=== PATIENT | female | born 1930 | race Caucasian/White ===

== ENCOUNTER 2018-10-29 12:25 | Inpatient (IN) | payer MEDICARE, BC ==
[~2018-10-29] VITALS: Ht 165.1 cm; Wt 51.5 kg
[~2018-10-29 12:25] MED LIST: AMLO1CAP6 PO; ASCO500C15 PO; ATOR20TA66 PO; CHOL400T PO; CLOP75TA35 PO; FURO-150 PO; HYDR-4383 PO; LACRIL; NITR0.4T51 SL; SOTA80TA46
[2018-10-29 14:50] LABS: BASOPHILS # (AUTO) 0.1 X10'3 (0-0.2); BASOPHILS % (AUTO) 1.5 % (0-1); EOSINOPHILS # (AUTO) 0.3 X10'3 (0-0.9); EOSINOPHILS % (AUTO) 4.4 % (0-6); HEMATOCRIT 39.6 % (35.0-45.0); HEMOGLOBIN 13.7 g/dl (12.0-16.0); LYMPHOCYTES # (AUTO) 1.5 X10'3 (1.1-4.8); LYMPHOCYTES % (AUTO) 22.6 % (21-51); MEAN CORPUSCULAR HGB CONC 34.6 g/dL (33.0-36.5); MEAN CORPUSCULAR VOLUME 98.1 FL (78-98); MEAN PLATELET VOLUME 8.4 FL (7.4-10.4); MONOCYTES # (AUTO) 0.6 X10'3 (0-0.9); MONOCYTES % (AUTO) 9.3 % (2-12); NEUTROPHILS # (AUTO) 4.1 X10'3 (1.8-7.7); NEUTROPHILS % (AUTO) 62.2 % (42-75); PLATELET COUNT 217 X10'3 (140-440); RED BLOOD COUNT 4.04 X10'6 (4.20-5.60); WHITE BLOOD COUNT 6.7 X10'3 (4.5-11.0)
[2018-10-29 15:04] LABS: INR 1.1 INR; PARTIAL THROMBOPLASTIN TIME 34 SECONDS (22-32); PROTHROMBIN TIME 10.8 SECONDS (9.0-12.0)
[2018-10-29 15:07] LABS: ALANINE AMINOTRANSFERASE 28 U/L (12-78); ALBUMIN/GLOBULIN RATIO 1.1 (1.1-1.5); ALKALINE PHOSPHATASE 79 IU/L (46-116); ANION GAP 7 (8-16); ASPARTATE AMINO TRANSFERASE 19 U/L (10-37); BILIRUBIN,TOTAL 0.8 MG/DL (0.1-1.0); BLOOD UREA NITROGEN 18 MG/DL (7-18); BUN/CREATININE RATIO 21.7 (6.6-38.0); CALCIUM 8.9 MG/DL (8.5-10.1); CHLORIDE 101 MMOL/L (99-107); CREATININE 0.83 MG/DL (0.40-0.90); GLUCOSE 98 MG/DL (70-104); POTASSIUM 3.7 MMOL/L (3.5-5.1); SODIUM 139 MMOL/L (135-145); TOTAL CARBON DIOXIDE 30.8 MMOL/L (24-32); TOTAL PROTEIN 7.6 G/DL (6.4-8.2); eGFR 65 ML/MIN
[2018-10-29] MEDS ORDERED: aspirin 81mg tab.chew PO ONE (15:25)
[2018-10-29] MEDS ORDERED: LORazepam 0.5 MG tablet PO PRN (15:50)
[2018-10-29] MEDS ORDERED: furosemide 10 MG/1 ML 10ml inj IV ONE (16:25)
[2018-10-29 16:35] LABS: D-DIMER 0.47 MG/L FEU (0-0.50)
[2018-10-29] MEDS ORDERED: VITA400C65 PO (16:53)
[2018-10-29] MEDS ORDERED: OMEG1CAP13 PO (16:53)
[2018-10-29] MEDS ORDERED: VITC500T PO (16:53)
[2018-10-29] MEDS ORDERED: FURO-150 PO (16:53)
[2018-10-29] MEDS ORDERED: PYRI50TA10 PO (16:53)
[2018-10-29] MEDS ORDERED: SOTA80TA PO (16:53)
[2018-10-29] MEDS ORDERED: ASPI-611 PO (16:53)
[2018-10-29] MEDS ORDERED: MAGN400C PO (16:53)
[2018-10-29] MEDS ORDERED: APIX2.5T PO (16:53)
[2018-10-29] MEDS ORDERED: AMLO1CAP9 PO (16:53)
[2018-10-29] MEDS ORDERED: CYA500T PO (16:53)
[2018-10-29] MEDS ORDERED: CHOL400T14 PO (16:53)
[2018-10-29] MEDS ORDERED: mag hydrox/Alum hydrox/simeth 30ml oral suspension PO PRN (19:45)
[2018-10-29] MEDS ORDERED: acetaminophen 325mg tablet PO PRN (19:45)
[2018-10-29] MEDS ORDERED: magnesium hydroxide 30ml (MOM) UD suspension PO PRN (19:45)
[2018-10-29] MEDS ORDERED: ondansetron/PF 4mg/2ml inj IV PRN (19:45)
[2018-10-29] MEDS: magnesium oxide 400mg tablet PO SCH (20:42)
--- NOTE | 2018-10-29 20:45 | NUR ---
tyra albarado room assignemnt 346b. pt is a&ox4 and pleasant and cooperative and with stable vs. av paced on monitor. 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 saez. denies any pain and reports no sob or cp as long as she is not movings . assisted to bsc to void.
[2018-10-29 21:00] VITALS: BP 144/75
--- NOTE | 2018-10-29 21:00 | NUR ---
Received report from ER nurse Lisa HURTADO. Will assume patient care
--- NOTE | 2018-10-29 21:20 | NUR ---
Patient settles in room. [place] patient to room and surroundings. States understanding of using call light for assistance. Sats 95 RA. No respiratory distress noted. Lungs sounds clear. Will continue with care.
[2018-10-29] MEDS: sotalol 80mg tablet PO SCH (21:38)
[2018-10-29] MEDS: apixaban 2.5mg tablet PO SCH (21:40)
[2018-10-30] VITALS: BP 119/54
[2018-10-30 02:38] LABS: BASOPHILS % (AUTO) 0.5 % (0-1); EOSINOPHILS # (AUTO) 0.3 X10'3 (0-0.9); EOSINOPHILS % (AUTO) 5.3 % (0-6); HEMATOCRIT 36.8 % (35.0-45.0); HEMOGLOBIN 12.4 g/dl (12.0-16.0); LYMPHOCYTES # (AUTO) 1.9 X10'3 (1.1-4.8); LYMPHOCYTES % (AUTO) 32.6 % (21-51); MEAN CORPUSCULAR HEMOGLOBIN 33.2 PG (27.0-31.0); MEAN CORPUSCULAR HGB CONC 33.8 g/dL (33.0-36.5); MEAN CORPUSCULAR VOLUME 98.2 FL (78-98); MEAN PLATELET VOLUME 8.4 FL (7.4-10.4); MONOCYTES # (AUTO) 0.7 X10'3 (0-0.9); MONOCYTES % (AUTO) 12.2 % (2-12); NEUTROPHILS # (AUTO) 2.8 X10'3 (1.8-7.7); NEUTROPHILS % (AUTO) 49.4 % (42-75); PLATELET COUNT 193 X10'3 (140-440); RED BLOOD COUNT 3.74 X10'6 (4.20-5.60); RED CELL DISTRIBUTION WIDTH 13.9 % (11.5-14.5); WHITE BLOOD COUNT 5.7 X10'3 (4.5-11.0)
[2018-10-30 02:49] LABS: ALANINE AMINOTRANSFERASE 24 U/L (12-78); ALBUMIN 3.4 G/DL (3.4-5.0); ALBUMIN/GLOBULIN RATIO 1.2 (1.1-1.5); ALKALINE PHOSPHATASE 63 IU/L (46-116); ANION GAP 8 (8-16); ASPARTATE AMINO TRANSFERASE 17 U/L (10-37); BILIRUBIN,TOTAL 0.6 MG/DL (0.1-1.0); BLOOD UREA NITROGEN 22 MG/DL (7-18); BUN/CREATININE RATIO 25.6 (6.6-38.0); CALCIUM 8.6 MG/DL (8.5-10.1); CHLORIDE 101 MMOL/L (99-107); CREATININE 0.86 MG/DL (0.40-0.90); GLUCOSE 90 MG/DL (70-104); POTASSIUM 3.3 MMOL/L (3.5-5.1); SODIUM 139 MMOL/L (135-145); TOTAL CARBON DIOXIDE 29.9 MMOL/L (24-32); TOTAL PROTEIN 6.3 G/DL (6.4-8.2); eGFR 62 ML/MIN
[2018-10-30] MEDS ORDERED: potassium Cl 40MEQ/NS 500ml 500 ML IV PRN ×2 (05:10)
[2018-10-30] MEDS ORDERED: potassium Cl 20 mEq SR tablet PO PRN (05:10)
[2018-10-30] MEDS: potassium Cl 20 mEq SR tablet PO PRN ×3 (05:14→14:20)
--- NOTE | 2018-10-30 06:30 | NUR ---
Patient in room [facility]. I have received report from GENESIS Stearns and had the opportunity to ask questions and assume patient care. Patient resting comfortably at this time. Call light and items of frequent use in reach of patient.
[2018-10-30 08:00] VITALS: BP 123/69
[2018-10-30] MEDS ORDERED: non-formulary drug (Amlodipine Besylate/Benazepril (Amlodipine-Benazepril 5-20 mg) 1 CAP) PO SCH (08:00)
[2018-10-30] MEDS ORDERED: non-formulary drug (Docosahexanoic Acid/Epa (Fish Oil 1,000 Mg Softgel) 1 EACH) PO SCH (08:00)
[2018-10-30] MEDS: cholecalciferol (vitamin D) 400 unit tablet PO SCH (08:40)
[2018-10-30] MEDS: sotalol 80mg tablet PO SCH ×2 (08:40→19:39)
[2018-10-30] MEDS: ascorbic acid 500mg tablet PO SCH (08:40)
[2018-10-30] MEDS: magnesium oxide 400mg tablet PO SCH ×2 (08:40→19:39)
[2018-10-30] MEDS: apixaban 2.5mg tablet PO SCH ×2 (08:40→19:39)
[2018-10-30] MEDS: vitamin E 400 unit capsule PO SCH (08:40)
[2018-10-30] MEDS: aspirin 81mg tab.chew PO SCH (08:40)
[2018-10-30] MEDS: cyanocobalamin 500mcg tablet PO SCH (08:40)
[2018-10-30] MEDS: lisinopril 20mg tablet PO SCH (08:41)
[2018-10-30] MEDS: amLODIPine 5mg tablet PO SCH (08:42)
[2018-10-30] MEDS: pyridoxine 50mg tablet PO SCH (09:20)
[2018-10-30] MEDS: furosemide 40mg/4ml inj IV SCH (09:20)
[2018-10-30 11:00] VITALS: BP 127/68
--- NOTE | 2018-10-30 18:32 | NUR ---
Received report from Irasema HURTADO pt is awake and alert on RA, in no apparent distress, just finished up with dinner, call light and items of freq use within reach
--- NOTE | 2018-10-30 18:46 | NUR ---
Problems reprioritized. Patient report given, questions answered & plan of care reviewed with GENESIS Viveros. Patient finished dinner and is resting comfortably at this time. Call light and items of use in reach of patient.
[2018-10-30 19:00] VITALS: BP 116/51
[2018-10-30] MEDS: polyethylene glycol 3350 17gm powd pack PO SCH (20:36)
[2018-10-31 00:11] VITALS: BP 110/57
--- NOTE | 2018-10-31 06:03 | NUR ---
Problems reprioritized. Patient report given, questions answered & plan of care reviewed with Irasema HURTADO.
--- NOTE | 2018-10-31 06:45 | NUR ---
Patient in room [facility]. I have received report from GENESIS Armendariz and had the opportunity to ask questions and assume patient care. patient resting comfortably at this time. Call light and items of frequent use in reach of patient.
[2018-10-31 07:06] LABS: BASOPHILS % (AUTO) 0.5 % (0-1); EOSINOPHILS # (AUTO) 0.4 X10'3 (0-0.9); EOSINOPHILS % (AUTO) 5.8 % (0-6); HEMATOCRIT 38.1 % (35.0-45.0); HEMOGLOBIN 12.9 g/dl (12.0-16.0); LYMPHOCYTES # (AUTO) 1.7 X10'3 (1.1-4.8); LYMPHOCYTES % (AUTO) 21.6 % (21-51); MEAN CORPUSCULAR HEMOGLOBIN 33.1 PG (27.0-31.0); MEAN CORPUSCULAR HGB CONC 33.8 g/dL (33.0-36.5); MEAN CORPUSCULAR VOLUME 97.9 FL (78-98); MEAN PLATELET VOLUME 8.5 FL (7.4-10.4); MONOCYTES # (AUTO) 0.7 X10'3 (0-0.9); MONOCYTES % (AUTO) 9.7 % (2-12); NEUTROPHILS # (AUTO) 4.8 X10'3 (1.8-7.7); NEUTROPHILS % (AUTO) 62.4 % (42-75); PLATELET COUNT 192 X10'3 (140-440); RED BLOOD COUNT 3.89 X10'6 (4.20-5.60); RED CELL DISTRIBUTION WIDTH 13.5 % (11.5-14.5); WHITE BLOOD COUNT 7.7 X10'3 (4.5-11.0)
[2018-10-31 07:13] LABS: ALANINE AMINOTRANSFERASE 20 U/L (12-78); ALBUMIN 3.3 G/DL (3.4-5.0); ALBUMIN/GLOBULIN RATIO 1.1 (1.1-1.5); ALKALINE PHOSPHATASE 61 IU/L (46-116); ANION GAP 10 (8-16); ASPARTATE AMINO TRANSFERASE 15 U/L (10-37); BILIRUBIN,TOTAL 0.6 MG/DL (0.1-1.0); BLOOD UREA NITROGEN 29 MG/DL (7-18); BUN/CREATININE RATIO 32.6 (6.6-38.0); CALCIUM 8.7 MG/DL (8.5-10.1); CHLORIDE 102 MMOL/L (99-107); CREATININE 0.89 MG/DL (0.40-0.90); GLUCOSE 94 MG/DL (70-104); POTASSIUM 4.1 MMOL/L (3.5-5.1); SODIUM 139 MMOL/L (135-145); TOTAL CARBON DIOXIDE 27.4 MMOL/L (24-32); TOTAL PROTEIN 6.4 G/DL (6.4-8.2); eGFR 60 ML/MIN
[2018-10-31 07:47] VITALS: BP 135/71
[2018-10-31] MEDS: furosemide 40mg/4ml inj IV SCH (08:27)
[2018-10-31] MEDS: sotalol 80mg tablet PO SCH ×2 (08:27→20:28)
[2018-10-31] MEDS: apixaban 2.5mg tablet PO SCH ×2 (08:28→20:28)
[2018-10-31] MEDS: magnesium oxide 400mg tablet PO SCH ×2 (08:29→20:28)
[2018-10-31] MEDS: amLODIPine 5mg tablet PO SCH (08:29)
[2018-10-31] MEDS: lisinopril 20mg tablet PO SCH (08:30)
[2018-10-31] MEDS: vitamin E 400 unit capsule PO SCH (08:30)
[2018-10-31] MEDS: pyridoxine 50mg tablet PO SCH (08:30)
[2018-10-31] MEDS: cholecalciferol (vitamin D) 400 unit tablet PO SCH (08:30)
[2018-10-31] MEDS: ascorbic acid 500mg tablet PO SCH (08:30)
[2018-10-31] MEDS: cyanocobalamin 500mcg tablet PO SCH (08:30)
[2018-10-31] MEDS: aspirin 81mg tab.chew PO SCH (08:31)
[2018-10-31 11:54] VITALS: BP 137/72
--- NOTE | 2018-10-31 18:15 | NUR ---
Problems reprioritized. Patient report given, questions answered & plan of care reviewed with GENESIS Armendariz. Patient alert, oriented and in no apparent distress at this time. Patient eating dinner at this time. Call light and items of frequent use in reach of patient.
--- NOTE | 2018-10-31 18:19 | NUR ---
Received report from Irasema HURTADO pt is awake and alert family at bedside, on RA, eating dinner, in no apparent distress, calll ight and items of freq use within reach.
[2018-10-31 19:00] VITALS: BP 125/57
[2018-10-31] MEDS: polyethylene glycol 3350 17gm powd pack PO SCH (20:27)
[2018-11-01] VITALS: BP 125/60
--- NOTE | 2018-11-01 05:56 | NUR ---
Gave report to Irasema HURTADO pt is resting on RA, in no apparent distress, call light and items of freq use within reach.
[2018-11-01 06:12] LABS: BASOPHILS % (AUTO) 0.6 % (0-1); EOSINOPHILS # (AUTO) 0.4 X10'3 (0-0.9); HEMOGLOBIN 12.8 g/dl (12.0-16.0); LYMPHOCYTES # (AUTO) 1.9 X10'3 (1.1-4.8); LYMPHOCYTES % (AUTO) 27.4 % (21-51); MEAN CORPUSCULAR HEMOGLOBIN 33.1 PG (27.0-31.0); MEAN CORPUSCULAR HGB CONC 33.6 g/dL (33.0-36.5); MEAN CORPUSCULAR VOLUME 98.4 FL (78-98); MEAN PLATELET VOLUME 8.4 FL (7.4-10.4); MONOCYTES # (AUTO) 0.7 X10'3 (0-0.9); MONOCYTES % (AUTO) 10.4 % (2-12); NEUTROPHILS # (AUTO) 3.8 X10'3 (1.8-7.7); NEUTROPHILS % (AUTO) 55.6 % (42-75); PLATELET COUNT 202 X10'3 (140-440); RED BLOOD COUNT 3.87 X10'6 (4.20-5.60); RED CELL DISTRIBUTION WIDTH 13.4 % (11.5-14.5); WHITE BLOOD COUNT 6.9 X10'3 (4.5-11.0)
[2018-11-01 06:31] LABS: ALANINE AMINOTRANSFERASE 16 U/L (12-78); ALBUMIN 3.3 G/DL (3.4-5.0); ALBUMIN/GLOBULIN RATIO 1.1 (1.1-1.5); ALKALINE PHOSPHATASE 61 IU/L (46-116); ANION GAP 10 (8-16); ASPARTATE AMINO TRANSFERASE 13 U/L (10-37); BILIRUBIN,TOTAL 0.5 MG/DL (0.1-1.0); BLOOD UREA NITROGEN 26 MG/DL (7-18); BUN/CREATININE RATIO 33.8 (6.6-38.0); CALCIUM 8.8 MG/DL (8.5-10.1); CHLORIDE 101 MMOL/L (99-107); CREATININE 0.77 MG/DL (0.40-0.90); GLUCOSE 94 MG/DL (70-104); POTASSIUM 3.9 MMOL/L (3.5-5.1); SODIUM 138 MMOL/L (135-145); TOTAL CARBON DIOXIDE 27.1 MMOL/L (24-32); TOTAL PROTEIN 6.4 G/DL (6.4-8.2); eGFR 71 ML/MIN
[2018-11-01 08:00] VITALS: BP 141/84
[2018-11-01] MEDS: amLODIPine 5mg tablet PO SCH (08:20)
[2018-11-01] MEDS: sotalol 80mg tablet PO SCH ×2 (08:20→19:20)
[2018-11-01] MEDS: pyridoxine 50mg tablet PO SCH (08:21)
[2018-11-01] MEDS: magnesium oxide 400mg tablet PO SCH ×2 (08:21→19:20)
[2018-11-01] MEDS: lisinopril 20mg tablet PO SCH (08:21)
[2018-11-01] MEDS: vitamin E 400 unit capsule PO SCH (08:21)
[2018-11-01] MEDS: ascorbic acid 500mg tablet PO SCH (08:21)
[2018-11-01] MEDS: cyanocobalamin 500mcg tablet PO SCH (08:21)
[2018-11-01] MEDS: furosemide 40mg/4ml inj IV SCH (08:21)
[2018-11-01] MEDS: cholecalciferol (vitamin D) 400 unit tablet PO SCH (08:21)
[2018-11-01] MEDS: aspirin 81mg tab.chew PO SCH (08:21)
[2018-11-01] MEDS: apixaban 2.5mg tablet PO SCH ×2 (08:21→19:20)
[2018-11-01 12:00] VITALS: BP 114/59
--- NOTE | 2018-11-01 14:48 | NUR ---
Plan of care rediscussed with patient and family members. PT is to work with patient and evaluate for baseline. If patient tolerates well she will be discharging home. If PT states that she should go to a rehab facility then referrals will be asked for from case management. Per Dr. Carrizales.
--- NOTE | 2018-11-01 16:00 | NUR ---
O2 Sat at rest on room air:97% If below 89%: Recovery O2 Sat at rest on ___LPM:___%:___% via (mask/nasal cannula, etc..) No further documentation is necessary. If O2 Sat did not drop below 89% on room air,ambulate patient on room air. O2 Sat while ambulating on room air:97-98% Recovery O2 Sat while ambulating on ___LPM:___% No further documentation is necessary. If patient does not drop below 89% while ambulating, he/she does not qualify for home O2.
--- NOTE | 2018-11-01 17:30 | NUR ---
Patient did not work with PT due to PT being busy. Discussed with Charge and charge agreed that I could evaluate patient's oxygen saturation while ambulating to see if she desaturated. Patient's baseline O2 sat was 97%. During ambulation the O2 sat did not drop. Although the numbers were not showing evidence of oxygenation problems, the patient became very short of breath during ambulation and expressed a dizziness sensation in her head and that her legs felt tingly. Patient was able to walk 300 feet but had to take several breaks. Patient walked back to her room and was struggling to control her breathing. Lung sounds were clear and saturation remained 97%. Dr. Carrizales was notified of the distress and was notified that this is not the patients baseline. Patient is usually able to ambulate independently at home and has not experienced this type of SOB prior to the last week. Patient and family did not feel comfortably with patient leaving today. Dr. Carrizales agreed to allow patient to stay and be evaluated again tomorrow.
[2018-11-01 18:00] VITALS: BP 141/78
--- NOTE | 2018-11-01 18:40 | NUR ---
Problems reprioritized. Patient report given, questions answered & plan of care reviewed with GENESIS Liang. Patient resting comfortably at this time and in no apparent distress on room air. Call light and items of frequent use in reach of patient.
--- NOTE | 2018-11-01 18:54 | NUR ---
Patient in room [facility]. I have received report from Irasema HURTADO and had the opportunity to ask questions and assume patient care.
[2018-11-01] MEDS: polyethylene glycol 3350 17gm powd pack PO SCH (21:41)
[2018-11-02] VITALS: BP 134/71
[2018-11-02 05:15] LABS: BASOPHILS # (AUTO) 0.1 X10'3 (0-0.2); BASOPHILS % (AUTO) 0.8 % (0-1); EOSINOPHILS # (AUTO) 0.5 X10'3 (0-0.9); EOSINOPHILS % (AUTO) 6.3 % (0-6); HEMATOCRIT 39.1 % (35.0-45.0); HEMOGLOBIN 13.4 g/dl (12.0-16.0); LYMPHOCYTES # (AUTO) 2.1 X10'3 (1.1-4.8); LYMPHOCYTES % (AUTO) 29.2 % (21-51); MEAN CORPUSCULAR HEMOGLOBIN 33.4 PG (27.0-31.0); MEAN CORPUSCULAR HGB CONC 34.4 g/dL (33.0-36.5); MEAN CORPUSCULAR VOLUME 97.2 FL (78-98); MEAN PLATELET VOLUME 8.3 FL (7.4-10.4); MONOCYTES # (AUTO) 0.8 X10'3 (0-0.9); MONOCYTES % (AUTO) 10.9 % (2-12); NEUTROPHILS # (AUTO) 3.8 X10'3 (1.8-7.7); NEUTROPHILS % (AUTO) 52.8 % (42-75); PLATELET COUNT 207 X10'3 (140-440); RED BLOOD COUNT 4.02 X10'6 (4.20-5.60); RED CELL DISTRIBUTION WIDTH 13.4 % (11.5-14.5); WHITE BLOOD COUNT 7.2 X10'3 (4.5-11.0)
[2018-11-02 05:31] LABS: ALANINE AMINOTRANSFERASE 17 U/L (12-78); ALBUMIN 3.4 G/DL (3.4-5.0); ALBUMIN/GLOBULIN RATIO 1.1 (1.1-1.5); ALKALINE PHOSPHATASE 66 IU/L (46-116); ANION GAP 7 (8-16); ASPARTATE AMINO TRANSFERASE 13 U/L (10-37); BILIRUBIN,TOTAL 0.5 MG/DL (0.1-1.0); BLOOD UREA NITROGEN 25 MG/DL (7-18); BUN/CREATININE RATIO 30.5 (6.6-38.0); CALCIUM 9.1 MG/DL (8.5-10.1); CHLORIDE 101 MMOL/L (99-107); CREATININE 0.82 MG/DL (0.40-0.90); GLUCOSE 92 MG/DL (70-104); POTASSIUM 4.4 MMOL/L (3.5-5.1); SODIUM 139 MMOL/L (135-145); TOTAL CARBON DIOXIDE 30.9 MMOL/L (24-32); TOTAL PROTEIN 6.6 G/DL (6.4-8.2); eGFR 66 ML/MIN
--- NOTE | 2018-11-02 06:14 | NUR ---
Problems reprioritized. Patient report given, questions answered & plan of care reviewed with Belle HURTADO.
--- NOTE | 2018-11-02 06:14 | NUR ---
Patient in room [facility]. I have received report from and had the opportunity to ask questions and assume patient care.
--- NOTE | 2018-11-02 06:41 | NUR ---
received report from Azul HURTADO
[2018-11-02 07:03] VITALS: BP 148/85
[2018-11-02 07:53] VITALS: BP 148/85
[2018-11-02] MEDS: furosemide 40mg/4ml inj IV SCH (08:08)
[2018-11-02] MEDS: aspirin 81mg tab.chew PO SCH (08:09)
[2018-11-02] MEDS: lisinopril 20mg tablet PO SCH (08:09)
[2018-11-02] MEDS: magnesium oxide 400mg tablet PO SCH (08:09)
[2018-11-02] MEDS: cyanocobalamin 500mcg tablet PO SCH (08:10)
[2018-11-02] MEDS: sotalol 80mg tablet PO SCH (08:10)
[2018-11-02] MEDS: ascorbic acid 500mg tablet PO SCH (08:10)
[2018-11-02] MEDS: amLODIPine 5mg tablet PO SCH (08:10)
[2018-11-02] MEDS: cholecalciferol (vitamin D) 400 unit tablet PO SCH (08:44)
[2018-11-02] MEDS: pyridoxine 50mg tablet PO SCH (08:44)
[2018-11-02] MEDS: vitamin E 400 unit capsule PO SCH (08:44)
[2018-11-02] MEDS: apixaban 2.5mg tablet PO SCH (08:44)
[2018-11-02 11:00] VITALS: BP 136/75
[2018-11-02 11:13] VITALS: BP 136/75
== END 2018-11-02 15:28 | disposition home health service (06) | DRG 292 ==
LOC: ER 12:25 → ED HOLD 19:43 → SUR 3N 21:20
PROVIDERS: ADMIT Internal Medicine; ATTEND Internal Medicine
DX: I11.0 Hypertensive heart disease with heart failure (principal); Z68.1 Body mass index [BMI] 19.9 or less, adult; E87.6 Hypokalemia; I27.20 Pulmonary hypertension, unspecified; I25.10 Atherosclerotic heart disease of native coronary artery without angina pectoris; E03.9 Hypothyroidism, unspecified; E78.00 Pure hypercholesterolemia, unspecified; I50.43 Acute on chronic combined systolic (congestive) and diastolic (congestive) heart failure; M19.90 Unspecified osteoarthritis, unspecified site; I08.1 Rheumatic disorders of both mitral and tricuspid valves; Z96.651 Presence of right artificial knee joint; I25.2 Old myocardial infarction; Z90.710 Acquired absence of both cervix and uterus; Z90.49 Acquired absence of other specified parts of digestive tract; Z95.0 Presence of cardiac pacemaker; Z95.1 Presence of aortocoronary bypass graft; Z88.6 Allergy status to analgesic agent; Z91.012 Allergy to eggs; Z91.048 Other nonmedicinal substance allergy status; Z79.82 Long term (current) use of aspirin; Z86.73 Personal history of transient ischemic attack (TIA), and cerebral infarction without residual deficits; Z82.49 Family history of ischemic heart disease and other diseases of the circulatory system; Z82.3 Family history of stroke; Z80.0 Family history of malignant neoplasm of digestive organs
CPT/HCPCS: 36415; 71045; 80053; 83880; 84484; 85025; 85379; 85610; 85730; 87070; 93005; 93306; 96374; 97116; 97161; 97530; 99285; G0378; J1940

== ENCOUNTER 2018-11-23 05:52 | Day surgery (SDC) | payer MEDICARE, BC ==
[2018-11-20 11:54] LABS: BASOPHILS # (AUTO) 0.1 X10'3 (0-0.2); BASOPHILS % (AUTO) 0.8 % (0-1); EOSINOPHILS # (AUTO) 0.3 X10'3 (0-0.9); EOSINOPHILS % (AUTO) 4.5 % (0-6); HEMATOCRIT 38.8 % (35.0-45.0); HEMOGLOBIN 13.1 g/dl (12.0-16.0); LYMPHOCYTES # (AUTO) 1.5 X10'3 (1.1-4.8); LYMPHOCYTES % (AUTO) 22.1 % (21-51); MEAN CORPUSCULAR HEMOGLOBIN 33.2 PG (27.0-31.0); MEAN CORPUSCULAR HGB CONC 33.9 g/dL (33.0-36.5); MEAN CORPUSCULAR VOLUME 97.8 FL (78-98); MEAN PLATELET VOLUME 7.9 FL (7.4-10.4); MONOCYTES # (AUTO) 0.7 X10'3 (0-0.9); MONOCYTES % (AUTO) 10.3 % (2-12); NEUTROPHILS # (AUTO) 4.2 X10'3 (1.8-7.7); NEUTROPHILS % (AUTO) 62.3 % (42-75); PLATELET COUNT 239 X10'3 (140-440); RED BLOOD COUNT 3.96 X10'6 (4.20-5.60); RED CELL DISTRIBUTION WIDTH 13.7 % (11.5-14.5); WHITE BLOOD COUNT 6.7 X10'3 (4.5-11.0)
[2018-11-20 12:03] LABS: ALBUMIN 3.7 G/DL (3.4-5.0); ANION GAP 7 (8-16); BLOOD UREA NITROGEN 16 MG/DL (7-18); CALCIUM 9.3 MG/DL (8.5-10.1); CHLORIDE 102 MMOL/L (99-107); GLUCOSE 92 MG/DL (70-104); POTASSIUM 4.4 MMOL/L (3.5-5.1); SODIUM 139 MMOL/L (135-145); TOTAL CARBON DIOXIDE 29.8 MMOL/L (24-32); eGFR 68 ML/MIN
[2018-11-20 12:15] LABS: INR 1.1 INR; PARTIAL THROMBOPLASTIN TIME 32 SECONDS (22-32)
[~2018-11-23] VITALS: Ht 165.1 cm; Wt 53.2 kg
[2018-11-23] VITALS (15 sets, daily range): BP systolic 121–159; BP diastolic 62–93
[~2018-11-23 05:52] MED LIST changes: -AMLO1CAP6 PO; +AMLO1CAP9 PO; +APIX2.5T PO; -ASCO500C15 PO; +ASPI-611 PO; -ATOR20TA66 PO; -CHOL400T PO; +CHOL400T14 PO; -CLOP75TA35 PO; +CYA500T PO; -HYDR-4383 PO; -LACRIL; +MAGN400C PO; -NITR0.4T51 SL; +OMEG1CAP13 PO; +PYRI50TA10 PO; +SOTA80TA PO; -SOTA80TA46; +VITA400C65 PO; +VITC500T PO
[2018-11-23] MEDS ORDERED: LORazepam 0.5 MG tablet PO PRN (06:15)
[2018-11-23] MEDS ORDERED: normal saline 1000ml 1,000 ML IV SCH (06:15)
[2018-11-23] MEDS ORDERED: diphenhydrAMINE 25mg capsule PO PRN (06:15)
[2018-11-23] MEDS ORDERED: POTA20PA40 (06:22)
[2018-11-23] MEDS ORDERED: UBID100C16 PO (06:22)
[2018-11-23] MEDS ORDERED: LIDOcaine/PRILOcaine 5gm cream TP ONE (07:20)
[2018-11-23] MEDS ORDERED: nitroGLYCERIN-Tridil 50MG/D5W 250 ML IV ONE (07:34)
[2018-11-23] MEDS ORDERED: LIDOcaine 1% (10mg/ml)w/preservative injection 20ml MDV ONE (07:34)
[2018-11-23] MEDS ORDERED: heparin 1,000unit/ml 10ml vial 10 ML ONE (07:34)
[2018-11-23] MEDS ORDERED: iohexol 350 MG/ML 50ML vial IV ONE (07:35)
[2018-11-23] MEDS ORDERED: iohexol 350 MG/1 ML 200ml bottle ONE (07:35)
[2018-11-23] MEDS ORDERED: midazolam 2 mg/2 ml injection ONE (07:45)
[2018-11-23] MEDS ORDERED: fentaNYL/PF 50MCG/1 ML 2ML syringe ONE (07:45)
[2018-11-23] MEDS ORDERED: verapamil 2.5 mg/ml inj IV ONE (08:01)
[2018-11-23 09:06] LABS: ISTAT Hct MIX 35 %PCV (35-48); ISTAT O2 SATURATION MIX VENOUS 69 % (60-80); ISTAT SOURCE MIX
[2018-11-23 09:06] LABS: ISTAT HGB ART 11.6 g/dl (12.0-16.0); ISTAT Hct ART 34 %PCV (35-48); ISTAT O2 SATURATION ARTERIAL 97 % (95-98); ISTAT SOURCE ART
== END 2018-11-23 15:55 | disposition home or self-care (01) ==
LOC: SSTAY O 05:52
PROVIDERS: ATTEND Internal Medicine Cardiovascular Disease
DX: I25.10 Atherosclerotic heart disease of native coronary artery without angina pectoris (principal); I08.1 Rheumatic disorders of both mitral and tricuspid valves; I48.91 Unspecified atrial fibrillation; E78.5 Hyperlipidemia, unspecified; I10 Essential (primary) hypertension; E03.9 Hypothyroidism, unspecified; Z79.01 Long term (current) use of anticoagulants; Z95.1 Presence of aortocoronary bypass graft; Z98.890 Other specified postprocedural states; Z79.82 Long term (current) use of aspirin; Z88.8 Allergy status to other drugs, medicaments and biological substances
CPT/HCPCS: 36415; 80048; 82803; 85014; 85025; 85610; 85730; 93005; 93312; 93325; 93461; 99152; 99153; C1760; C1769; C1894; J1644; J2001; J2250; J3010; J7030; Q0163; Q9967; A4620; J3490